=== PATIENT | female | born 1950 | race Caucasian/White ===

== ENCOUNTER → 2018-10-06 | Outpatient (CLI) | payer OTHER ==
--- NOTE | 2018-10-07 14:23 | KCIC ---
History: Screening Bilateral digital CC and MLO views were obtained with mammography. Computer aided detection was utilized with iCAD Second Look 7.2-H. Previous: April 09, 2016 and priors. The breast is almost entirely fatty (Level 1 density). There are no suspicious masses, suspicious microcalcifications or areas of architectural distortion. Benign left breast calcification. IMPRESSION: Negative mammogram. Patient information was entered into the [employer] reminder system with a target due date for the next screening mammogram. Routine annual screening mammogram in one year advised. BI-RADS Category 1: Negative. A mammogram does not have 100% sensitivity and therefore a negative imaging study should not delay further work up of a suspicious abnormality. If your mammogram demonstrates that you have dense breast tissue, which could hide abnormalities, and if you have other risk factors for breast cancer that have been identified, you might benefit from supplemental screening tests that may be suggested by your ordering physician. Dense breast tissue, in and of itself, is a relatively common condition. This information is not provided to cause undue concern, but rather to raise your awareness and to promote discussion with your physician regarding the presence of other risk factors, in addition to dense breast tissue. A report of your mammography results will be sent to you and your physician. You should contact your physician if you have any questions or concerns regarding this report. A mammogram does not have 100% sensitivity and therefore a negative imaging study should not delay further work up of a suspicious abnormality. "Our facility is accredited by the [employer] Mammography Program." Electronically signed by: Matt Grewal MD (10/07/2018 2:21 PM) [id number]
== END | disposition home or self-care (01) ==
LOC: KCIC MAMMO 08:59
PROVIDERS: ATTEND Family Medicine
DX: Z12.31 Encounter for screening mammogram for malignant neoplasm of breast (principal)
CPT/HCPCS: 77067

== ENCOUNTER → 2019-09-26 | Outpatient (CLI) | payer MEDICARE ==
--- NOTE | 2019-09-26 16:14 | KCIC ---
Bone densitometry study: Date: 09/26/2019. Indication: Postmenopausal. History of adult fracture.. Procedure: DEXA study. Findings: The bone mineral density from L1 through L4 is 0.846 grams/cm squared with T-score -1.8. The bone mineral density in the left hip involving the neck of the left femur is 0.750 grams per cm squared with a T-score of -0.2. Impression: Low-normal bone mineral density in the left hip and osteopenia in the spine. Electronically signed by: Nhi Medina MD (09/26/2019 4:11 PM) [id number]
== END | disposition home or self-care (01) ==
LOC: KCIC DEXA 11:15
PROVIDERS: ATTEND Family Medicine
DX: M85.88 Other specified disorders of bone density and structure, other site (principal); N95.9 Unspecified menopausal and perimenopausal disorder
CPT/HCPCS: 77080